=== PATIENT | male | born 1955 | race Caucasian/White ===

== ENCOUNTER 2016-08-06 16:36 | Emergency (ER) | payer OTHER ==
[~2016-08-06] VITALS: Ht 172.7 cm; Wt 118.2 kg
[2016-08-06 16:40] VITALS: BP 145/67; PULSE 65; RESP 16; O2SAT 99
--- NOTE | 2016-08-06 16:51 | ED.REPORT ---
HPI-Extremity Problem Upper Date of Service August 06, 2016 ED Provider: Ish Darden MD Patient is a 60 year old male who presents to the ED via EMS due to a left finger laceration. Patient reports that he was slicing vegetables when he cut his finger. He states that he came to the ED because he couldn't get the bleeding to stop even after applying pressure. Nursing Notes Stated Complaint: LACERATION Chief Complaint: Laceration Nursing Notes Reviewed: Yes Allergies: Coded Allergies: No Known Allergies (Unverified , 08/06/16) General Time Seen by MD: 16:50 Chief Complaint Finger injury left 1 Hx Obtained From: Patient Arrived By: Ambulance Onset Occurred: Just prior to arrival Symptom Duration: Since onset Caused by: Knife wound Location: : Finger left 1 Severity: Current: Moderate Pertinent Negative: Pt denies other symptoms Recent Healthcare: No recent doctor visit, No recent hospitalization Similar Sx Previous: No Past Medical History Past Medical History Notes: R arm amputated Past Medical History chronic back pain Reports: Hypertension Past Surgical History gastric bypass Smoking History Former Smoker Social History Alcohol Use: 1-3 per day Drug Use: Denies drug use Other Social History: Good social support, Ambulatory Status Independent Review of Systems Review of Systems Note: lac L thumb/avulsion Musculoskeletal: Reports: Extremity pain Skin: Denies Diaphoresis, Denies Swelling Complete sys rev & neg: except as marked. Respiratory: Denies: Non-productive cough, Shortness of breath Allergy / Immune: Denies: Itching Physical Exam Initial Vital Signs Vital Signs (First) Date Time Temp Pulse Resp B/P Pulse Ox O2 Delivery O2 Flow Rate FiO2 08/06/16 16:40 36.1 65 16 145/67 99 Room Air Initial VS: Reviewed Head / Eyes: Atraumatic, Normocephalic Neck: Full range of motion Lower Extremities: Vascular intact, Neuro intact, No swelling Skin: Warm, Dry, No cyanosis Neurologic: Alert, Oriented, Nonfocal General/Constitutional: Awake, Alert, No acute distress Respiratory / Chest: Atraumatic, No respiratory distress Upper Extremity / MS: Neurologic intact, Vascular intact amputated right arm radial aspect of the left thumb and a small corner of the nail bed was taken off no exposed bone Skin: Color NL, No rash, Warm, Dry Neurologic: Oriented X3, Speech NL, No motor deficits, No sensory deficits Head / Eyes: Atraumatic, Normocephalic, PERRL, EOMI Lower Extremity / Pelvis / MS: Atraumatic, Full range of motion Psychiatric: Affect NL, Mood NL Procedures Laceration Management Laceration Management: Gelfoam applied to thumb wrapped with Kerlix multiple layers. bleeding controlled Time: 17:14 Procedure Performed by: ED physician Consent / Setup / Site Prep: Consent from patient, Hand hygiene observed Location of Wound: radial aspect of the left thumb Wound Length: 2 cm Local Anesthesia: Lidocaine w epi 1% Digit Involved: Thumb left Debridement: None Post-Procedure / Complications: Antibiotic oint applied, Dressing applied, No complications, Condition improved, Tolerated procedure well, Patient stable Re-Eval/Medical Decision Med Decision/Clinical Course Report from Dr. Darden. I will clean and dress wound finger splint given to pt for later use to protect. Discussed wound care and when to return. Patient was here for 30 minutes Post-application of dressing with no signs of bleeding. Patient's last tetanus shot was 7-8 years ago. He does not want a right now he may go to the pharmacy to get it tomorrow-discussed risks of this Re-Evaluation/Progress : Time of Eval: 17:07 Re-Evaluation/Progress Note: Discussed plan for treatment and discharge. The patient understands and agrees to the plan for discharge. All questions were addressed. Counseled Regarding: Diagnosis, Need for follow-up, When/why to return to ED Discharge & Departure Impression: Primary Impression: Laceration of left thumb Encounter type: initial encounter Qualified Code: S61.012A - Laceration without foreign body of left thumb without damage to nail, initial encounter Disposition: Home Discharge Condition All VS Reviewed: Yes Condition: Stable Patient Instructions: Acute Wounds (ED) Additional Instructions: Leave dressing on for 24-48 hours. Do not get wet. you may apply a finger condom to allow for easier care. use fingertip protector as needed. Keep wrapped. After 48 hours look at wound daily. The Gelfoam on until it falls off , replace outer bandage only. Follow-up here if signs of infection including redness, purulent drainage or any other concerns like fever. Pain meds as needed Referrals: [facility] Scribe Attestation Portions of this note were transcribed by Anjelica Gonzalez and Skye Rodas. I, Dr. Darden personally performed the history, physical exam and medical decision- making; I reviewed and confirmed the accuracy of the information in the transcribed note. Signed by: Charlie Estrada, 08/06/16 and 1700 Signed by Skye Rodas 08/06/16 1815 Attending Statement I personally examined this patient and agree with above. copies to: [facility] Ish Darden MD August 06, 2016 16:51 Ashtyn Gonzalez August 06, 2016 16:58 Skye Rodas August 06, 2016 18:15 Brandy Lu August 06, 2016 18:34
[2016-08-06] MEDS ORDERED: Lidocaine 1%-Epi 1:100,000 20 mL Inj ONE (17:07)
[2016-08-06] MEDS ORDERED: Lidocaine 2%-Epi 1:100,000 20 mL Inj ONE (17:07)
[2016-08-06] MEDS ORDERED: Gelatin Sponge 12-7 MM TOPICAL ONE (17:55)
[2016-08-06 18:47] VITALS: BP 138/63; PULSE 72; RESP 16; O2SAT 98
== END 2016-08-06 18:55 | disposition home or self-care (01) ==
LOC: SED 16:36
DX: S61.012A Laceration without foreign body of left thumb without damage to nail, initial encounter (principal); W26.0XXA Contact with knife, initial encounter; Y93.G1 Activity, food preparation and clean up; Y92.9 Unspecified place or not applicable; Y99.8 Other external cause status; I10 Essential (primary) hypertension; Z87.891 Personal history of nicotine dependence